=== PATIENT | female | born 1980 | race Caucasian/White ===

== ENCOUNTER 2018-09-22 02:53 | Inpatient (IN) ==
--- OUTSIDE RECORDS SUMMARY | 2018-09-22 02:58 | External Medical Summary | Continuity of Care Document ---
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 (795.04) (R87.613) Allergies and Adverse Reactions No Known Drug Allergies (Allergy) Medications Vitamins TABS Refills: 0 Procedures Non-stress test Date: 19-Sep-2018 History of Oral Surgery Tooth Extraction Status: Completed History of Inguinal Hernia Repair Status : Completed Immunizations Fluzone Quadrivalent 0.5 ML Intramuscular Suspension P refilled Syringe On: 22-Mar-2018 15:17 Lot #: [id number], SANOFI PASTEUR Tdap (Adacel) On: 05-Jul-2018 8:41 Lot #: [id number], SANOFI PASTEUR Family History Father Family history of diabetes mellitus (V18.0) (Z83.3) Status: Active Family history of hypertension (V17.49) (Z82.49) Status: Act rk Family history of High cholesterol (272.0) (E78.00) Status: Active Family history of kidney disease (V18.69) (Z84.1) Status: Ac tive Plan of Treatment Planned Encounters Appointment; Bernabe Lamar M.D. Start: 26-Sep-2018 10:50 Request Planned Observations Planned Goals not documented Results Non-stress test (Pending) Laboratory: In House 30-Aug-2018 13:40 Non-Stress Test Reactive Group B Strep/SANTIZO 30-Aug-2018 0:00 GRP B BETA STREP CULTURE - SANTIZO ORDERED P ROCEDURE : GRP B Beta Strep Culture -SANTIZO; Specime nt : Vaginal/Rectal S ource of Specimen: Vaginal/Rectal Group B Strep Culture : No Group B Strep isolated Non-stress test (Pending) Laboratory: In [address] 06-Sep-2018 11:35 Non-Stress Test Reactive Non-stress test (Pending) Laboratory: In [address] 12-Sep-2018 11:59 Non-Stress Test Reactive Non-stress test (Pending) Laboratory: In [address] 19-Sep-2018 9:39 Non-Stress Test Reactive Vital Signs 21-Sep-2018 11:04 Systolic 110 mm[Hg] Diastolic 80 mm[Hg] Weight 273 lb Height 73 in BMI Calculated 36.02 kg/m2 BSA Calculated 2.46 m2 19-Sep-2018 9:21 Systolic 114 mm[Hg] Diastolic 82 mm[Hg] Weight 273 lb Height 73 in BMI Calculated 36.02 kg/m2 BSA Calculated 2.46 m2 12-Sep-2018 11:13 Systolic 122 mm[Hg] Diastolic 76 mm[Hg] Weight 277 lb Height 73 in BMI Calculated 36.55 kg/m2 BSA Calculated 2.47 m2 06-Sep-2018 11:05 Systolic 106 mm[Hg] Diastolic 68 mm[Hg] Weight 274 lb Height 73 in BMI Calculated 36.15 kg/m2 BSA Calculated 2.46 m2 30-Aug-2018 12:58 Systolic 106 mm[Hg] Diastolic 64 mm[Hg] Weight 268.8 lb Height 73 in BMI Calculated 35.46 kg/m2 BSA Calculated 2.44 m2 23-Aug-2018 13:15 Systolic 110 mm[Hg] Diastolic 80 mm[Hg] Weight 270.375 lb Height 73 in BMI Calculated 35.67 kg/m2 BSA Calculated 2.45 m2 Encounters Appointment; Bernabe Lamar M.D. 21-Sep-2018 10:40 Encounter Diagnosis: Problem not documented Appointment; Madonna Dahl M.D. 19-Sep-2018 9:40 Encounter Diagnosis: Problem not documented Appointment; OB SC1, Nonstress Test 19-Sep-2018 9:00 Encounter Diagnosis: Problem not documented Appointment; OB SC1, Nonstress Test 12-Sep-2018 11:15 Encounter Diagnosis: Problem not documented Appointment; Silviano Sanchez M.D. 12-Sep-2018 11:10 Encounter Diagnosis: Problem not documented Appointment; Jennifer Liang M.D. 06-Sep-2018 11:40 Encounter Diagnosis: Problem not documented Appointment; OB SC1, Nonstress Test 06-Sep-2018 11:00 Encounter Diagnosis: Problem not documented Appointment; Silviano Sanchez M.D. 30-Aug-2018 13:30 Encounter Diagnosis: Problem not documented Appointment; OB SC1, Nonstress Test 30-Aug-2018 13:00 Encounter Diagnosis: Problem not documented Appointment; Bernabe Lamar M.D. 23-Aug-2018 13:10 Encounter Diagnosis: Problem not documented Appointment; Silviano Sanchez M.D. 09-Aug-2018 13:15 Encounter Diagnosis: Problem not documented Appointment; Sanjay Delgado M.D. 26-Jul-2018 11:10 Encounter Diagnosis: Problem not documented Appointment; Jennifer Liang M.D. 22-Jul-2018 14:50 Encounter Diagnosis: Problem not documented Appointment; Bijal Sunshine M.D. 05-Jul-2018 8:20 Encounter Diagnosis: Problem not documented Appointment; Silviano Sanchez M.D. 07-Jun-2018 9:00 Encounter Diagnosis: Problem not documented Appointment; OBGYN SC1, Ultrasound 07-Jun-2018 8:30 Encounter Diagnosis: Problem not documented Appointment; Hemalatha Campbell DO 12-May-2018 8:50 Encounter Diagnosis: Problem not documented Appointment; OBGYN SC2, Ultrasound 12-May-2018 8:00 Encounter Diagnosis: Problem not documented Appointment; Silviano Sanchez M.D. 12-Apr-2018 13:40 Encounter Diagnosis: Problem not documented Appointment; Bijal Sunshine M.D. 12-Apr-2018 12:30 Encounter Diagnosis: Problem not documented Appointment; [facility] SC1, Procedure Room 12-Apr-2018 12:30 Encounter Diagnosis: Problem not documented Appointment; Silviano Sanchez M.D. 22-Mar-2018 15:00 Encounter Diagnosis: Problem not documented Appointment; OB SC1, Procedure Rm 24-Feb-2018 14:00 Encounter Diagnosis: Problem not documented Appointment; Sanjay Delgado M.D. 24-Feb-2018 14:00 Encounter Diagnosis: Problem not documented Appointment; OB SC1, Nursing Station 17-Feb-2018 10:45 Encounter Diagnosis: Problem not documented Appointment; OBGYN SC1, Ultrasound 17-Feb-2018 10:00 Encounter Diagnosis: Problem not documented Appointment; Bijal Sunshine M.D. 21-Jan-2018 8:30 Encounter Diagnosis: Problem not documented Appointment; Simone Bender M.D. 08-Feb-2017 8:30 Encounter Diagnosis: Problem not documented Appointment; Bernabe Lamar M.D. 26-Sep-2018 10:50 Encounter Diagnosis: Problem not documented
[2018-09-22] MEDS ORDERED: OXYTOCIN 30 UNITS/500 ML BAG IV PRN ×3 (03:41→10:24)
[2018-09-22] MEDS ORDERED: LACTATED RINGER'S 1,000 ML IV PRN ×3 (03:41→07:39)
[2018-09-22] MEDS ORDERED: LACTATED RINGER'S 1,000 ML IV SCH (03:45)
--- NOTE | 2018-09-22 03:56 | History & Physical Report ---
Date of Service September 22, 2018 Assessment & Plan (1) Normal labor and delivery: IPU at 39 weeks in active labor requesting epidural analgesia anticipate vaginal delivery Present on Admission?: Yes (2) 39 weeks gestation of : Present on Admission?: Yes History of Present Illness Primary Care Provider: NO PCP Patient is a 38 yo black female EDC09/27/[birth year] who presents at 39 weeks with regular contractions for several hours. No SPROM, small amount of bloody show. complicated by AMA. Blood type O positive Rubella Immune RPR NR HBSAg negative HIV -negative GC/chlam negative GBS -negative. cell free DNA- low risk boy anatomy scan complete & normal. Allergies Allergy/AdvReac Type Severity Reaction Status Date / Time No Known Drug Allergies Allergy Unknown . Verified 09/22/18 03:01 Home Medications Home Medications Medication Instructions Recorded Confirmed Type vit-iron fum-folic ac 1 tab PO QAM #0 tab 11/14/15 09/22/18 History [ Vitamin] Patient History Medical History Metatarsal bone fracture ying placed from fracture in 1999 Surgical History H/O hernia repair 1986 H/O knee surgery 2004; 2007; 2016 History of colposcopy 04/12/18 Social History Preferred Language: [place]an Communication Ability: Effective [place] Decorator Required: No Beliefs That Will Affect Care: None marital status: Current Living Situation: Spouse Current Living Situation Comment: lives with son Other Information That Helps Us Care for You: No Feels Safe at Home: Yes Safety Concerns: Feels Safe At This Time Smoking Status: Never smoker Second Hand Exposure: No Hx Alcohol Use: No Hx Substance Use: No Review of Systems All systems reviewed & are unremarkable except as noted in HPI & below Physical Exam Constitutional: WD/WN, vitals as above Respiratory: normal respiratory effort, lungs clear to auscultation Cardiovascular: RRR, no murmur, no edema Gastrointestinal (Abdomen): normal bowel sounds, soft, nontender, no hepatosplenomegaly Genitourinary: OB Exam Abdomen: + vertex and + regular contractions Manual OB Exam: + cervical dilation 6 cm, + cervical effacement 100% and + station -2 OB Exam Monitor Tracing: + external FHT monitor used, + external uterine monitor used, + category I and + normal FHT variability Results & Data Vital Signs (Past 12 Hours) Vital Signs Temp Pulse Resp BP 09/22/18 03:09 98.4 F 91 H 18 134/76 09/22/18 02:58 91 H 134/76
[2018-09-22 04:00] LABS: Hematocrit (blood only) 36.1 % (37-47); Hemoglobin 12.4 g/dL (12.0-16.0); Mean Corpuscular Volume 88.5 fL (80-100); Platelet Count 195 K/uL (130-400); RDW Coefficient of Variation 13.3 % (11.5-14.5); RDW Standard Deviation 43.2 fL (36.4-46.3); Red Blood Count 4.08 M/uL (4.2-5.4)
[2018-09-22 04:04] LABS: Mean Corpuscular Hgb Conc 34.3 g/dL (32-36)
[2018-09-22] MEDS ORDERED: ePHEDrine sulfate 50 MG/ML AMP ONE (04:22)
[2018-09-22] MEDS ORDERED: BUPIVACAINE 0.25% 30 ML VIAL ONE (04:22)
[2018-09-22] MEDS ORDERED: fentaNYL 2MCG/ML ROPIV 1.25MG/ML 100 ML BAG EPI ONE (04:23)
[2018-09-22] MEDS ORDERED: fentaNYL citrate 100 MCG/2 ML VIAL ONE (04:23)
--- NOTE | 2018-09-22 04:32 | Anesthesiology Consultation ---
Date of Service September 22, 2018 Assessment & Plan Chart Review Chart Review: Acceptable Risk for Labor Epidural Consults Requested none ASA ASA2 Proposed Anesthesia Anesthesia Type: Labor Epidural Risk / Benefits Reviewed With: PT / POA / Parent / Guardian, Accepts Plan and Informed Consent Obtained History Height/Weight Height: 6 ft 2 in Weight: 123.831 kg Allergies Allergy/AdvReac Type Severity Reaction Status Date / Time No Known Drug Allergies Allergy Unknown . Verified 09/22/18 03:01 Medications Home Medications Medication Instructions Recorded Confirmed Last Taken vit-iron fum-folic ac 1 tab PO QAM #0 tab 11/14/15 09/22/18 09/21/18 09:15 [ Vitamin] Active Medications Generic Name Dose Route Start Last Admin Trade Name Freq PRN Reason Stop Dose Admin Lactated Ringer's 1,000 mls @ 999 mls/hr 09/22/18 03:41 09/22/18 04:03 Lr IV 10/22/18 03:40 999 mls/hr .Q1H1M PRN Administration Pre-Anesthesia NPO Date Last Intake of Fluids: 09/21/18 Time Last Intake of Fluids: 20:30 Date Last Intake of Solids: 09/21/18 Time Last Intake of Solids: 20:30 Past Medical History Medical History Metatarsal bone fracture ying placed from fracture in 1999 Exercise / Class Metabolic Activity II 4-5 Yardwork/Stairs/Walk up hill Past Surgical History Surgical History H/O hernia repair 1986 H/O knee surgery 2004; 2007; 2016 History of colposcopy 04/12/18 Past Anesthesia History No Hx of Anesthesia Complications and No Family Hx of Anesthesia Complications History of PONV No Hx of PONV and No Hx of Motion Sickness Social History Smoking Status: Never smoker Hx Alcohol Use: No Hx Substance Use: No substance use type: does not use Physical Exam Vital Signs Last Vital Signs Temp 36.9 C 09/22/18 03:09 Pulse 89 09/22/18 04:28 Resp 18 09/22/18 03:09 BP 134/76 09/22/18 03:09 Pulse Ox 100 09/22/18 04:28 Constitutional + obese ENMT Mouth: no dentition abnormality Thyromental Distance: > or= 3.5 Finger Breadths Mallampati Class: II Neck normal visual inspection and trachea midline; neck extension not limited Respiratory normal respiratory effort Auscultation: lungs clear to auscultation bilaterally Cardiovascular Rate/Rhythm: regular rate and regular rhythm Heart Sounds: no murmur Musculoskeletal Spine: lumbar spine normal to inspection; normal cervical ROM Neurologic moves all extremities Motor/Sensory: no sensory deficit Psychiatric Orientation: alert and oriented x 3 Testing Laboratory Results 09/22/18 03:51
[2018-09-22] MEDS ORDERED: fentaNYL 2MCG/ML ROPIV 1.25MG/ML 100 ML BAG EPI PRN (05:02)
[2018-09-22] MEDS ORDERED: DiphenhydrAMINE HCL 50 MG/ML VIAL IV PRN (05:02)
[2018-09-22] MEDS ORDERED: PROMETHAZINE HCL 25 MG in SODIUM CHLORIDE 0.9% 50 ML IV PRN (05:02)
[2018-09-22] MEDS ORDERED: NALOXONE HCL 1 MG in SODIUM CHLORIDE 0.9% 1000ML 1,000 ML IV PRN (05:02)
[2018-09-22] MEDS ORDERED: ONDANSETRON INJ 2 MG/ML 2 ML VIAL IV PRN (05:02)
[2018-09-22] MEDS ORDERED: ePHEDrine sulfate 50 MG/ML AMP IV PRN (05:02)
[2018-09-22] MEDS ORDERED: NALOXONE HCL 0.4 MG/1 ML VIAL/CARP IV PRN (05:02)
[2018-09-22] MEDS ORDERED: NALBUPHINE HCL INJ 10 MG/ML AMP IV PRN (05:02)
--- NOTE | 2018-09-22 07:43 | Obstetrical Progress Note ---
Date of Service September 22, 2018 Assessment & Plan (1) 39 weeks gestation of : Contractions have spaced since epidural. Cervix with no change since epidural. Will start Pitocin augmentation. Anticipate vaginal delivery Subjective Change of shift note: 38-year-old 2 para 139+ weeks gestational age presented to labor and delivery in active labor. Patient was uncomfortable. Epidural was placed. Patient is not feeling contractions after epidural. Physical Exam Genitourinary: OB Exam Monitor Tracing: + category II and + normal FHT variability 8/100/0, AROM clear Results & Data Vital Signs (Past 12 Hours) Vital Signs Temp Pulse Resp BP Pulse Ox 09/22/18 07:38 96 H 99 09/22/18 07:34 93 H 136/74 09/22/18 07:33 93 H 98 09/22/18 07:28 85 97 09/22/18 07:27 18 09/22/18 07:23 92 H 97 09/22/18 07:19 90 136/88 09/22/18 07:18 91 H 98 09/22/18 07:13 91 H 99 09/22/18 07:08 85 98 09/22/18 07:05 90 111/69 09/22/18 07:03 83 99 09/22/18 07:00 98.4 F 18 09/22/18 06:58 87 99 09/22/18 06:53 79 100 09/22/18 06:48 83 100 09/22/18 06:45 82 115/64 09/22/18 06:43 87 100 09/22/18 06:40 85 121/68 09/22/18 06:38 82 100 09/22/18 06:36 83 117/68 09/22/18 06:33 84 100 09/22/18 06:32 84 118/69 09/22/18 06:30 18 09/22/18 06:28 85 100 09/22/18 06:25 101 H 109/63 09/22/18 06:23 82 100 09/22/18 06:20 82 116/66 09/22/18 06:18 74 100 09/22/18 06:15 85 122/68 09/22/18 06:13 84 100 09/22/18 06:10 85 117/68 09/22/18 06:08 77 100 05/09/19 06:05 82 115/68 05/09/19 06:03 81 100 09/22/18 06:00 96 H 16 118/68 09/22/18 05:58 84 99 09/22/18 05:55 91 H 102/63 09/22/18 05:53 85 100 09/22/18 05:50 82 108/65 09/22/18 05:48 85 100 09/22/18 05:45 84 18 116/67 09/22/18 05:43 84 99 09/22/18 05:40 86 117/67 09/22/18 05:38 85 99 09/22/18 05:35 85 120/68 09/22/18 05:33 85 99 09/22/18 05:31 85 124/68 09/22/18 05:30 18 09/22/18 05:28 91 H 99 09/22/18 05:27 86 116/70 09/22/18 05:23 88 93 09/22/18 05:22 88 93 09/22/18 05:20 97 H 109/64 09/22/18 05:18 90 98 09/22/18 05:15 90 109/63 09/22/18 05:13 84 96 09/22/18 05:12 86 94 09/22/18 05:10 98.4 F 16 09/22/18 05:09 94 H 102/57 L 09/22/18 05:08 88 95 09/22/18 05:07 85 100/58 L 09/22/18 05:06 81 94 09/22/18 05:05 79 103/60 09/22/18 05:03 80 95/58 L 95 09/22/18 05:01 91 H 80/45 L 09/22/18 05:00 16 09/22/18 04:59 93 H 91/50 L 09/22/18 04:58 92 H 95 09/22/18 04:57 88 115/58 L 09/22/18 04:55 94 H 112/68 09/22/18 04:53 92 H 96 09/22/18 04:48 94 H 97 09/22/18 04:43 104 H 99 09/22/18 04:38 106 H 97 09/22/18 04:34 89 93 09/22/18 04:33 88 94 09/22/18 04:31 95 H 135/91 09/22/18 04:28 89 100 09/22/18 03:09 98.4 F 91 H 18 134/76 09/22/18 02:58 98.4 F 91 H 18 134/76
--- NOTE | 2018-09-22 09:45 | Anesthesia Procedure Note ---
Date of Service September 22, 2018 Anesthesia Post Epidural Note Vital Signs Vital Signs: Temp Pulse Resp BP Pulse Ox 36.9 C 92 H 18 124/81 99 09/22/18 07:00 09/22/18 09:40 09/22/18 08:26 09/22/18 09:33 09/22/18 09:40 Pain Intensity Bilateral Abdomen: Pain Intensity: 0 Notes Mental Status: alert / awake / arousable and participated in evaluation Nausea / Vomiting: adequately controlled Pain: adequately controlled Airway Patency, RR, SpO2: stable & adequate BP & HR: stable & adequate Hydration State: stable & adequate Neuraxial Anesthesia: was administered and sensory block is resolving Anesthetic Complications: no major complications apparent Epidural: Removed without complications and With tip intact
[2018-09-22] MEDS ORDERED: ACETAMINOPHEN 325 MG TAB PO PRN (10:24)
[2018-09-22] MEDS ORDERED: BENZOCAINE 20% AER SPR 82.5 GM CAN EXT PRN (10:24)
[2018-09-22] MEDS ORDERED: IBUPROFEN 600 MG TAB PO PRN (10:24)
[2018-09-22] MEDS ORDERED: SUPERCREAM 0.870% 15 GM JAR EXT PRN (10:24)
[2018-09-22] MEDS ORDERED: DIPHTHERIA/TETANUS/PERTUSSIS 0.5 ML SYR/VIAL IM ONE (10:24)
[2018-09-22] MEDS ORDERED: HYDROCORTISONE ACETATE 25 MG SUPP PR PRN (10:24)
[2018-09-22] MEDS ORDERED: ACETAMINOPHEN W/CODEINE #3 1 TAB PO PRN (10:24)
--- NOTE | 2018-09-22 13:12 | Delivery Summary ---
DATE OF OPERATION: 09/22/2018 FINDINGS: Viable male with Apgars of 9 and 9. Baby delivered over a midline second-degree laceration. Cord blood samples obtained. Placenta delivered spontaneously. Laceration repaired with 4-0 Vicryl in routine fashion. ESTIMATED BLOOD LOSS: 300 mL. LABOR NOTE: The patient is a 38-year-old 2, para 1 with an EDC of 27 September at 39+ weeks gestational age, who presented to labor and delivery in active labor. The patient states the contractions have begun approximately 12 hours prior to admission and increased in intensity. She denied rupture of membranes or vaginal bleeding. The patient had a benign course. Blood type O positive, antibody negative, rubella immune, hepatitis B negative. She had negative cell-free DNA screening, she had normal 1-hour Glucola x2 and a negative third trimester beta strep culture. Upon admission, the patient was noted to be 6 cm dilated, 100% effaced and -2 station. Tracing was category 1. Anesthesia was consulted and an epidural was placed. Following placement of the epidural, the patient's contractions had spaced out. Delivering physician assumed care for the patient. The patient was 8 cm dilated, artificial rupture of membranes for clear fluid, and because of the spaced out contractions, Pitocin augmentation was initiated. The patient progressed to full dilatation, began her second stage. She pushed for approximately 10 minutes delivering the viable male . Cord was clamped and cut. Cord blood samples obtained. Placenta delivered spontaneously. Inspection of the perineum showed a midline second-degree laceration. This was repaired with 4-0 Vicryl in routine fashion. Estimated blood loss 300 mL. Sponge and needle count was correct. I attest to the content of the Intraoperative Record and any orders documented therein. Any exception s are noted below.
[2018-09-22] MEDS: DOCUSATE SODIUM 100 MG CAP PO SCH (20:32)
--- NOTE | 2018-09-23 07:19 | Obstetrical Progress Note ---
Date of Service September 23, 2018 Assessment & Plan (1) Status post vaginal delivery: Patient is a 38 year old PPD 1 s/p -Vital signs WNL bp 123/79 T36.9, -Hemoglobin was 12.4 on admission am labs pending, no si/sx of anemia. -Pt is doing clinically well -Continue to encourage ambulation as tolerated, Monitor and control pain with motrin prn, Continue diet as tolerated. -Continue to support and encourage breast feeding -Counseled patient on discharge instructions including Vaginal bleeding, fevers, followup, lifting restrictions, breast feeding, vitamins, and nothing in the vagina for 6 weeks. Pt was agreeable -Plan for d/c today Supervising Physician Co-Signing Physician Notes Resident Physician Supervision Note: I was present with Dr. Peterson during the history and exam. I discussed the case with the resident and agree with the findings and plan as documented in the note. Any exceptions or clarifications are listed here: Patient desires PPD #1 D/C. Instructions given, pt to f/u in [place] for PP check Documented By: Bernabe Lamar Jr, MD, FACOG Subjective Patient is sitting up in bed cradeling baby in no acute distress with dad resting in the chair across the room. Pt reports doing well and requesting discharge today. Patient is tolerating her diet, ambulating, passing gas and voiding, has had a bm. Reports moderate lochia. Denies H/A, chest pain, palpitations and uti syx. Answered all questions, no concerns at present, pain is well controlled Physical Exam Physical Exam: Constitutional: WD/WN, vitals as above no acute distress Eyes: normal visual patel by confrontation Neck: normal visual inspection Respiratory: normal respiratory effort, lungs clear to auscultation Cardiovascular: RRR, no murmur, no edema Heart Sounds: normal S1 and normal S2 Extremities: no calf tenderness Gastrointestinal (Abdomen): Uterus firm and below the umbilicus Results & Data Vital Signs (Past 12 Hours) Vital Signs Temp Pulse Resp BP 09/23/18 05:00 36.9 C 68 18 123/79 09/22/18 20:15 36.6 C 70 18 120/74 Medications Administered Current Inpatient Medications Acetaminophen (Tylenol) 650 mg PO Q6H PRN PRN Reason: Pain/CARTER/Fever Stop: 10/22/18 10:23 Acetaminophen/Codeine Phosphate (Tylenol W/Codeine #3) 1 - 2 tab PO Q4H PRN PRN Reason: Pain not controlled with... Stop: 10/22/18 10:23 Benzocaine (Dermoplast Pain Relieving Hodgen) 1 appln EXT PRN PRN PRN Reason: Perineal Discomfort Stop: 10/22/18 10:23 Last Admin: 09/22/18 13:45 Dose: 82.5 appln Documented by: Bisacodyl (Dulcolax) 5 mg PO 1999 [facility] Stop: 09/23/18 20:01 Cocaine HCl (Supercream 0.870%) 1 gm EXT BID PRN PRN Reason: Hemorrhoidal Inflammation Stop: 10/06/18 10:23 Docusate Sodium (Colace) 100 mg PO BID [facility] Stop: 10/22/18 20:59 Last Admin: 09/22/18 20:32 Dose: 100 mg Documented by: Hydrocortisone (Anusol Hc) 25 mg WI BID PRN PRN Reason: Hemorrhoidal Inflammation Stop: 10/22/18 10:23 Oxytocin (Pitocin) 30 units in 500 mls @ 333.333 mls/hr IV .Q1H30M PRN; Protocol PRN Reason: Bleeding Control Stop: 10/22/18 10:23 Ibuprofen (Motrin) 600 mg PO Q4H PRN PRN Reason: Pain/CARTER/Cramping/Fever Stop: 10/22/18 10:23 Last Admin: 09/22/18 19:20 Dose: 600 mg Documented by: Prenat Multivit/[place]/Iron/Folic Ac ( Vitamin) 1 tab PO QAM [facility] Stop: 10/23/18 08:59 Resident Activity Tracking Resident Involvement: Resident Care Provided Care Provided: Adult Hospital Medicine
[2018-09-23] MEDS ORDERED: PRENATAL VITAMIN 1 TAB PO SCH (09:00)
[2018-09-23] MEDS: DOCUSATE SODIUM 100 MG CAP PO SCH ×2 (09:12→20:36)
[2018-09-23] MEDS ORDERED: BISACODYL 5 MG TABEC PO SCH (20:00)
--- NOTE | 2018-09-24 06:30 | Obstetrical Progress Note ---
Date of Service September 24, 2018 Assessment & Plan (1) Status post vaginal delivery: stable, ready for discharge. f/u 6wks pp check. instructions reviewed. Day #:: 2 Subjective Ambulation: ambulating normally Voiding: no voiding problems Diet Tolerance:: regular diet Lochia:: Small Feeding Type:: breast feeding doing well. breast feeding. ready for d/c home. Physical Exam Vital Signs (Past 24 Hours) Last Vital Signs Temp 98.6 F 09/23/18 23:00 Pulse 70 09/23/18 23:00 Resp 18 09/23/18 23:00 BP 120/67 09/23/18 23:00 Pulse Ox 100 09/23/18 15:53 Constitutional WD/WN, vitals as above Respiratory normal respiratory effort, lungs clear to auscultation Cardiovascular Rate/Rhythm: regular rate and regular rhythm Gastrointestinal (Abdomen) Inspection/Auscultation: abdomen normal to inspection Percussion/Palpation: abdomen soft fundus firm 2 cm below umbilicus Musculoskeletal nt calves. Psychiatric A+Ox3, euthymic affect
[2018-09-24 07:27] LABS: Hematocrit (blood only) 34.1 % (37-47)
[2018-09-24] MEDS: DOCUSATE SODIUM 100 MG CAP PO SCH (09:20)
== END 2018-09-24 12:05 | disposition home or self-care (01) | DRG 807 ==
LOC: 4S1 02:53 → 4S2 13:45